=== PATIENT | male | born 1995 | race Caucasian/White ===

== ENCOUNTER 2021-09-15 18:42 | Emergency (ER) | payer BC, SELFPAY ==
[2021-09-15 18:55] VITALS: BP 140/75; PULSE 82; RESP 18; TEMP 37.9; O2SAT 98
--- NOTE | 2021-09-15 19:48 | ED.URI ---
HPI - URI/Sore Throat General Chief Complaint: Upper Respiratory Infection Stated Complaint: sore throat Source: patient, RN notes reviewed and old records reviewed Mode of arrival: ambulatory Limitations: no limitations History of Present Illness HPI Narrative: 26 year old male presents to [facility] care with complaints of sore throat, fevers, nasal congestion, and nausea since yesterday, Patient denies any ear pain, acute cough or any shortness of breath. Patient reports that he has been taking Ibuprofen and Sudafed for his symptoms. He reports that he has been COVID Vaccinated. MD elicited complaint: fever, sore throat and nasal congestion Onset (ago): day(s) (1) Pain scale (0-10): 6 Treatments prior to arrival: ibuprofen and other (sudafed) Related Data Allergies Allergy/AdvReac Type Severity Reaction Status Date / Time No Known Allergies Allergy Verified 09/15/21 19:10 Review of Systems Review of Systems: CONSTITUTIONAL: Positive for fever, chills, or sweats. EYES: Denies visual changes, redness, or discharge. ENT: Positive for rhinorrhea, congestion, sore throat, no otalgia. CARDIOVASCULAR: Denies chest pain, palpitations, or edema. RESPIRATORY: Denies cough or dyspnea. GASTROINTESTINAL: Denies abdominal pain, nausea, vomiting, or diarrhea. GENITOURINARY: Denies dysuria or hematuria. SKIN: Denies rash or itching. MUSCULOSKELETAL: Denies back pain, joint pain, or myalgia. NEUROLOGIC: Denies headache, numbness, or weakness. PSYCHIATRIC: Denies anxiety or depression. All systems reviewed & are unremarkable except as noted in HPI and below PMFSH Social History Social History (Updated 09/17/21 @ 23:03 by Janet Avendaño NP) Smoking status: Never smoker Alcohol intake: current Alcohol use details: social Substance use: never Living arrangements: with family Gender identity (if verbalized by the patient): Male Comments At time of signature, agree with nursing past medical, surgical, social and family history. There is no relevant family history pertinent to the presenting complaint Exam Narrative: GENERAL: Well-appearing, well-nourished, and in no acute distress. HEAD: Normocephalic, atraumatic. EYES: PERRLA and EOMI. ENT: Nares red with clear rhinorrhea no epistaxis. Mucous membranes moist.TM's normal with good light reflex, throat red with no exudates, tonsils red enlarged with painful swallowing NECK: Supple.lymphadenopathy CHEST: Clear to auscultation. No respiratory distress.dry cough, SAO2 98% on room air HEART: Regular rate and rhythm. No murmur heard. Normal peripheral pulses. ABDOMEN: Soft, nontender, nondistended, normal active bowel sounds. EXTREMITIES: Normal range of motion. No edema. SKIN: Warm, dry, no rash. NEURO: No focal deficits. Alert and oriented x3. Course Course Level of Care: Express Care Visit Vital Signs Vital signs: Vital Signs Temperature 37.9 C H 09/15/21 18:55 Pulse Rate 82 09/15/21 18:55 Respiratory Rate 18 09/15/21 18:55 Blood Pressure 140/75 09/15/21 18:55 Pulse Oximetry 98 09/15/21 18:55 Oxygen Delivery Room Air 09/15/21 18:55 Temperature 37.9 C H 09/15/21 18:55 Pulse Rate 82 09/15/21 18:55 Respiratory Rate 18 09/15/21 18:55 Blood Pressure 140/75 09/15/21 18:55 Pulse Oximetry 98 09/15/21 18:55 Oxygen Delivery Room Air 09/15/21 18:55 MDM - URI/Sore Throat Differential Diagnosis Differential diagnosis: Likely upper respiratory infection, sinusitis, viral infection, pharyngitis and other (Tonsillitis) Medical Records Attestation: I reviewed the patient's medical records. Lab Data Lab results narrative: Strep screen negative Labs: Strep Screen Presumptive Negative *(Reference Range: Negative)* Critical Care Time Critical Care Time Critical Care Time: No Discharge Plan Discharge Clinical Impression: Acute tonsillitis Patient Disposition: H
== END 2021-09-15 20:01 | disposition home or self-care (01) ==
PROVIDERS: Emergency Provider Registered Nurse; PCP Nurse Practitioner Adult Health
DX: J03.90 Acute tonsillitis, unspecified (principal)
CPT/HCPCS: 87081; 87880; 99213; G0463

== ENCOUNTER 2022-01-18 18:33 | Emergency (ER) | payer BC, SELFPAY ==
[2022-01-18] VITALS (20 sets, daily range): BP systolic 124–166; BP diastolic 80–94; PULSE 57–78; RESP 13–20; TEMP 36.7–37; O2SAT 91–100
--- NOTE | ~2022-01-18 | XR_ITS ---
EXAMINATION: XR chest 2V DATE: 01/18/2022 21:19 INDICATION: Chest pain TECHNIQUE: PA and lateral views of the chest were obtained. COMPARISON: None FINDINGS: A few scattered small calcified pulmonary nodules consistent with old granulomatous disease. No other airspace opacities, pulmonary edema, pleural effusion or pneumothorax. The cardiomediastinal silhoue tte is normal. Visualized bones and soft tissues are unremarkable. IMPRESSION: 1. No acute cardiopulmonary disease. Reviewed, dictated and finalized at location A.
--- NOTE | 2022-01-18 18:37 | ECG_ITS ---
Measurements Intervals [place] Rate: 61 P: 88 MN: 151 QRS: 65 QRSD: 89 T: 28 QT: 374 QTc: 377 Interpretive Statements SINUS RHYTHM NORMAL ECG NO PREVIOUS ECG AVAILABLE FOR COMPARISON Electronically Signed On 01-18-2022 20:15:05 CDT by Freeman Swain D.O.
--- NOTE | 2022-01-18 20:59 | ED.GENADULT ---
HPI - General Adult General Chief complaint: Anxiety Stated complaint: PALPATATIONS CHEST PAIN Time Seen by Provider: 01/18/22 20:46 Source: RN notes reviewed History of Present Illness HPI narrative: Patient presents emergency room from home for palpitations. Patient states that for the past week he has been having heart palpitations which feels that his heart will skip a beat he states this happens approximately 2-3 times a day and normally while he is at work standing he states that with this at times he will feel a heaviness in his chest that he describes as feeling that his heart is working too hard he denies any fever chills shortness of breath abdominal pain nausea vomiting or any other symptoms Related Data Allergies Allergy/AdvReac Type Severity Reaction Status Date / Time No Known Allergies Allergy Verified 01/18/22 21:12 Review of Systems Review of Systems: Gen.: Denies fevers or chills ENT: Denies congestion Respiratory: Denies shortness of breath or cough CV: See HPI GI: Denies abdominal pain nausea, emesis or diarrhea Musculoskeletal: Denies back pain or muscle pain Neuro: Denies numbness, tingling, weakness or focal weakness Skin: Denies rash Except as documented, all other systems reviewed and negative [facility] Past Medical History Medical History (Updated 01/18/22 @ 22:50 by Leonel Luu DO) Patient denies significant medical history Social History Social History Smoking status: Never smoker Alcohol intake: current Alcohol use details: social Substance use: never Gender identity (if verbalized by the patient): Male Exam Narrative: APPEARANCE: No acute distress, nontoxic, resting in bed EYES: EOMI HEENT: Normocephalic, atraumatic, OMM RESPIRATORY: No respiratory distress Clear to auscultation bilaterally with no rhonchi wheezing or rales. CARDIOVASCULAR: Regular rate and rhythm without murmurs rubs or gallops. ABDOMINAL: Soft, nontender, nondistended, no rebound or guarding MUSCULOSKELETAl: Moves all extremities. No clubbing, cyanosis or edema. NEURO: Awake and alert. Following commands, speech normal, no focal deficits SKIN:: Warm, dry. No rashes lesions or abrasions PSYCHIATRIC: Normal affect/mood, Course Course Emergency Course: Patient remained on library monitor in ED with no arrhythmias noted Discussed with patient results of workup and diagnosis. Discussed need for follow-up with primary care, proper use of medication, and reasons to return to the emergency department. Patient understands and agrees to current treatment plan possible Holter monitor as outpatient Vital Signs Vital signs: Vital Signs Temperature 98.6 F 01/18/22 18:40 Pulse Rate 60 01/18/22 18:40 Respiratory Rate 20 01/18/22 18:40 Blood Pressure 166/86 H 01/18/22 18:40 Pulse Oximetry 100 01/18/22 18:40 Oxygen Delivery Room Air 01/18/22 18:40 Temperature 98.1 F 01/18/22 20:08 Pulse Rate 64 01/18/22 22:17 Respiratory Rate 14 01/18/22 22:17 Blood Pressure 139/88 01/18/22 22:16 Pulse Oximetry 99 01/18/22 22:17 Oxygen Delivery Room Air 01/18/22 20:43 Medical Decision Making Vital Signs Vital Signs: Vital Signs Temperature 98.6 F 01/18/22 18:40 Pulse Rate 60 01/18/22 18:40 Respiratory Rate 20 01/18/22 18:40 Blood Pressure 166/86 H 01/18/22 18:40 Pulse Oximetry 100 01/18/22 18:40 Oxygen Delivery Room Air 01/18/22 18:40 Temperature 98.1 F 01/18/22 20:08 Pulse Rate 64 01/18/22 22:17 Respiratory Rate 14 01/18/22 22:17 Blood Pressure 139/88 01/18/22 22:16 Pulse Oximetry 99 01/18/22 22:17 Oxygen Delivery Room Air 01/18/22 20:43 Lab Data Result diagrams: 01/18/22 21:04 01/18/22 21:04 Labs: Lab Results 01/18/22 01/18/22 01/18/22 Range/Units 21:04 21:04 21:04 WBC 8.5 (4.5-10.0) K/mm3 RBC 5.01 (4.6-6.20) M/mm3 Hg
[2022-01-18 21:17] LABS: Basophils Absolute Auto 0.1 K/mm3 (0.0-0.1); Basophils Percent Auto 0.9 % (0.2-1.2); Eosinophils Absolute Auto 0.5 K/mm3 (0-0.3); Hematocrit 44.4 % (42.0-52.0); Hemoglobin 15.1 g/dL (14.0-18.0); Immature Granulocyte Absolute 0.02 K/mm3 (0.00-0.031); Immature Granulocyte Percent A 0.2 % (0-0.5); Lymphocytes Absolute Auto 3.17 K/mm3 (0.9-3.2); Lymphocytes Percent Auto 37.1 % (18.3-44.2); Mean Corpuscular Hemoglobin 30.1 pg (26-34); Mean Corpuscular Volume 88.6 fl (80-100); Mean Platelet Volume 9.7 fl (7.4-10.4); Monocytes Absolute Auto 0.7 K/mm3 (0.1-0.6); Monocytes Percent Auto 7.7 % (2.6-8.5); Neutrophils Absolute Auto 4.1 K/mm3 (1.3-6.7); Neutrophils Percent Auto 48.1 % (45.5-73.1); Platelet Count Result 372 k/mm3 (150-375); Red Blood Count 5.01 M/mm3 (4.6-6.20); Red Cell Distribution Width 12.2 % (11.5-14.5); White Blood Count 8.5 K/mm3 (4.5-10.0)
[2022-01-18 21:28] LABS: Partial Thromboplastin Time 33.4 SECONDS (22.3-36.8); Prothrombin Time 13.1 Seconds (11.1-14.7)
[2022-01-18 21:33] LABS: Alanine Aminotransferase 39 U/L (6-50); Albumin Level 4.9 g/dL (3.5-5.1); Alkaline Phosphatase 65 U/L (38-126); Anion Gap 12 mmol/L (8-16); Aspartate Amino Transferase 30 U/L (17-59); Bilirubin,Total 0.4 mg/dL (0.2-1.3); Blood Urea Nitrogen 12 mg/dL (9-20); Calcium 9.1 mg/dL (8.4-10.2); Carbon Dioxide 30 mmol/L (22-30); Chloride 99 mmol/L (98-107); Estimated Glomerular Filt Rate > 60; Glucose 102 mg/dL (65-110); Lipase 165 U/L (23-300); Magnesium 1.8 mg/dL (1.6-2.3); Potassium 3.6 mmol/L (3.4-5.0); Sodium 141 mmol/L (137-145)
[2022-01-18 21:45] LABS: Troponin I < 0.012 ng/mL (0.000-0.034)
== END 2022-01-18 22:59 | disposition home or self-care (01) ==
PROVIDERS: Emergency Provider Emergency Medicine; PCP Nurse Practitioner Adult Health
DX: R00.2 Palpitations (principal)
CPT/HCPCS: 36415; 71046; 80053; 83690; 83735; 84443; 84484; 85025; 85610; 85730; 93005; 99284